=== PATIENT | female | born 1995 | race Caucasian/White ===

== ENCOUNTER → 2018-06-30 11:36 | Outpatient (CLI) | payer OTHER, MEDICAID, SELFPAY ==
[2018-06-30 12:13] LABS: Add Manual Diff / Slide Review NO; Basophils Absolute Auto 100 /uL (0-100); Basophils Percent Auto 0.6 % (0-2); Eosinophils Absolute Auto 100 /uL (0-450); Hematocrit 37.1 % (36-46); Hemoglobin 12.7 g/dL (12.0-16.0); Lymphocytes Absolute Auto 3100 /uL (1100-4500); Lymphocytes Percent Auto 34.2 % (25-40); Mean Corpuscular HGB Conc 34.1 % (30-36); Mean Corpuscular Hemoglobin 29.3 PG (26-34); Monocytes Absolute Auto 500 /uL (0-900); Monocytes Percent Auto 5.6 % (3-14); Neutrophils Absolute Auto 5300 /uL (1500-7000); Neutrophils Percent Auto 58.6 % (50-75); Platelet Count 315 X10^3/uL (150-400); Red Blood Cell Count 4.32 X10^6/uL (4.0-5.2); Red Cell Distribution Width 13.6 % (11.6-14.8); White Blood Cell Count 9.1 X10^3/uL (4.5-11.0)
[2018-06-30 12:44] LABS: Alanine Aminotransferase 32 IU/L (9-52); Albumin 4.7 g/dL (3.5-5.0); Albumin Globulin Ratio 1.7 (1.0-2.8); Alkaline Phosphatase 52 U/L (38-126); Aspartate Aminotransferase 21 IU/L (14-36); BUN Creatinine Ratio 12.9 (6-22); Bilirubin Total 0.6 mg/dL (0.2-1.3); Blood Urea Nitrogen 9 mg/dL (7-17); Calcium 9.9 mg/dL (8.4-10.2); Carbon Dioxide 24 mmol/L (22-32); Chloride 105 mmol/L (98-107); Cholesterol 143 mg/dL (140-199); Estimated Glomerular Filt Rate > 60.0 mL/min (>60); Globulin 2.8 g/dL (1.7-4.1); Glucose 86 mg/dL (70-100); HDL Cholesterol 44 mg/dL (40-60); HEMOLYSIS < 15 (0-50); LDL Cholesterol Calculated 85 mg/dL (<100); Potassium 4.5 mmol/L (3.4-5.1); Sodium 140 mmol/L (137-145); Total Protein 7.5 g/dL (6.3-8.2); Triglycerides 72 mg/dL (35-150)
[2018-06-30 13:11] LABS: Cortisol AM (Before 10AM) 8.11 ug/dL (4.46-22.7); TSH w/ Reflex to FT4 1.54 uIU/mL (0.47-4.68)
== END ==
PROVIDERS: PCP Family Medicine; Visit Provider Family Medicine
DX: D68.51 Activated protein C resistance (principal); Z83.49 Family history of other endocrine, nutritional and metabolic diseases
CPT/HCPCS: 36415; 80053; 80061; 82533; 84443; 85025

== ENCOUNTER → 2020-03-10 10:25 | Outpatient (CLI) | payer OTHER, SELFPAY ==
[2020-03-10 11:28] LABS: Add Manual Diff / Slide Review NO; Basophils Absolute Auto 100 /uL (0-100); Basophils Percent Auto 0.6 % (0-2); Eosinophils Absolute Auto 200 /uL (0-450); Eosinophils Percent Auto 2.5 % (2-4); Hematocrit 38.7 % (36-46); Hemoglobin 12.7 g/dL (12.0-16.0); Lymphocytes Absolute Auto 3100 /uL (1100-4500); Lymphocytes Percent Auto 34.3 % (25-40); Mean Corpuscular HGB Conc 32.9 % (30-36); Mean Corpuscular Volume 88.2 fL (80-100); Monocytes Absolute Auto 500 /uL (0-900); Neutrophils Absolute Auto 5100 /uL (1500-7000); Neutrophils Percent Auto 56.6 % (50-75); Platelet Count 351 X10^3/uL (150-400); Red Blood Cell Count 4.39 X10^6/uL (4.0-5.2); Red Cell Distribution Width 12.7 % (11.6-14.8); White Blood Cell Count 9.1 X10^3/uL (4.5-11.0)
[2020-03-10 11:43] LABS: Alanine Aminotransferase 19 IU/L (<35); Albumin 4.5 g/dL (3.5-5.0); Albumin Globulin Ratio 1.5 (1.0-2.8); Alkaline Phosphatase 54 U/L (38-126); Aspartate Aminotransferase 23 IU/L (14-36); BUN Creatinine Ratio 14.5 (6-22); Bilirubin Total 0.3 mg/dL (0.2-1.3); Blood Urea Nitrogen 9 mg/dL (7-17); Calcium 9.1 mg/dL (8.4-10.2); Carbon Dioxide 25 mmol/L (22-32); Chloride 108 mmol/L (98-107); Estimated Glomerular Filt Rate > 60.0 mL/min (>60); Globulin 3.1 g/dL (1.7-4.1); Glucose 95 mg/dL (70-100); HEMOLYSIS < 15 (0-50); Sodium 139 mmol/L (137-145); Total Protein 7.6 g/dL (6.3-8.2)
[2020-03-10 12:27] LABS: TSH w/ Reflex to FT4 1.75 uIU/mL (0.47-4.68)
== END ==
PROVIDERS: PCP Family Medicine; Referring Provider Family Medicine; Visit Provider Family Medicine
DX: D68.51 Activated protein C resistance (principal); E66.9 Obesity, unspecified; F31.9 Bipolar disorder, unspecified
CPT/HCPCS: 36415; 80053; 84443; 85025

== ENCOUNTER 2020-05-21 07:34 | Emergency (ER) | payer OTHER, SELFPAY ==
[2020-05-21 07:40] VITALS: BP 181/89; PULSE 81; RESP 16; TEMP 36.3; O2SAT 97; BMI 39.4
--- NOTE | 2020-05-21 07:44 | ED.ALLEREA ---
HPI - Allergic Reaction General Chief complaint: Allergic Reaction Stated complaint: both eyes swollen x30 minutes Time Seen by Provider: 05/21/20 07:44 Source: patient Mode of arrival: Ambulatory Limitations: no limitations History of Present Illness HPI narrative: This is a 24-year-old female who comes emergency department with complaint of swelling initially for left followed by her right eye. She states it just began this morning. She states when she woke up she did not have any swelling. She has also noticed some redness around her neck. The patient has not any fevers, no chills. She has not had any congestion or runny nose. Patient has not had any drainage from her eyes. She denies any pruritus. Patient denies any wheezing, no swelling of her lips, mouth or airway. She has not had any chest pain or shortness of breath. She has not had any vomiting she felt nauseous for short period this morning. No diarrhea. No urinary symptoms. She has not appreciated rash anywhere else on her body. She does take citalopram and lamotrigine which she has been taking for many months with no recent changes as well as a vitamin. She has not had any new exposures in terms of soaps, lotions, care products or facial products. Patient has not had similar symptoms in the past she states she has an allergy to amoxicillin but denies any other seasonal or environmental allergies. Patient states that she takes her medications for mood. She denies other medical issues. Related Data Home Medications Medication Instructions Recorded Confirmed prenat.vits,jayjay,[id number] 1 tab PO DAILY 05/06/20 05/06/20 Previous Rx's Medication Instructions Recorded citalopram 20 mg tablet 60 mg PO DAILY #270 tab 05/05/20 lamotrigine 200 mg tablet,extended 200 mg PO DAILY #90 tab 05/05/20 release 24 hr prednisone 40 mg PO DAILY 4 Days #8 tab 05/21/20 Allergies Allergy/AdvReac Type Severity Reaction Status Date / Time amoxicillin Allergy Intermediate HIVES Verified 05/05/20 14:09 fluoxetine AdvReac Severe self harm Verified 05/05/20 14:09 bupropion AdvReac Intermediate vivid Verified 05/05/20 14:09 dreams difficult to tell if they were real or not Review of Systems Review of Systems ROS Unobtainable: All systems reviewed & are unremarkable except as noted in HPI and below Patient History Medical History Carpal tunnel syndrome of right wrist Chicken pox (~2001) Depression (2009) GERD (gastroesophageal reflux disease) (2011) Irregular periods/menstrual cycles (2009) Obesity Peptic ulcer disease (2011) Pneumonia Sleep disturbance Tobacco use (11/24/15) Surgical History Anesthesia History of removal of skin mole (2006) Family History (System 01/15/19 @ 16:16 by Vandana Carroll) Grandfather Age: 80 Hypertension Mother Age: 53 Diabetes mellitus Hypertension High cholesterol Mental health problem Social History Smoking Status: Former smoker alcohol intake: current substance use type: marijuana Smoking Status: Former smoker Exam Narrative Exam Narrative: GEN: well nourished, well appearing female, alert and oriented x alert, patient appears to be in mild distress. HEENT: Atraumatic, pupils are equal round reactive to light, extraocular movements are intact, positive for periorbital swelling left greater than right with no erythema appreciated, no drainage from the eyes, nares are clear, TMs are clear with no fluid, there is no conjunctival pallor. Throat is clear without any exudates, erythema, tonsillar enlargement or uvular deviation, no swelling of the lips, oropharynx, tongue. No stridor. Patient does have patchy erythematous rash her chest but no raised wheals. HEART: Regular rate and rhythm without murmur, clicks, rubs. LUNGS:Lungs clear to auscultation, no wheezes, rales, crackles, chest moves symmetrically ABD:bowel sounds normal, soft, non-tender, no guarding, rebound, rigidity, no masses noted, no hepatosplenomegaly MSCL: Full range of motion, normal gait NEURO:CN 2-12 intact, sensation normal SKIN: Patient has rash as described above but no additional rash noted on the rest of her body. Initial Vital Signs Initial Vital Signs: Vital Signs Temperature 97.4 F L 05/21/20 07:40 Pulse Rate 81 05/21/20 07:40 Respiratory Rate 16 05/21/20 07:40 Blood Pressure 181/89 H 05/21/20 07:40 Pulse Oximetry 97 05/21/20 07:40 Course Orders Ordered: Discontinued Medications Diphenhydramine HCl (Diphenhydramine 25 Mg Tablet) 50 mg PO NOW ONE Stop: 05/21/20 07:50 Last Admin: 05/21/20 07:57 Dose: 50 mg Documented by: GRETA Prednisone (Prednisone 20 Mg Tablet) 60 mg PO NOW ONE Stop: 05/21/20 07:50 Last Admin: 05/21/20 07:57 Dose: 60 mg Documented by: GRETA Reevaluation(s) Reevaluation #1: Patient is haven't any worsening but has not dramatically improved. No signs of anaphylaxis. Discussed return precautions. Time: 08:54 Vital Signs Vital signs: Vital Signs - 8 hr 05/21/20 07:40 05/21/20 08:03 05/21/20 08:20 Temperature 97.4 F L Pulse Rate 81 75 Respiratory Rate 16 Blood Pressure 181/89 H 138/85 Pulse Oximetry 97 99 MDM - Allergic Reaction MDM Narrative Medical decision making narrative: Suspect patient is having a reaction. She has been on lamotrigine which could potentially be a source but is not a new medication. She has not had any known allergens that are likely cause. She does not appreciate any new products or exposures at home. Discharge Plan Departure Patient Disposition: Home Clinical Impression: Periorbital edema of both eyes, Allergic reaction Instructions: DI for General Allergic Reactions Activity Restrictions/Additional Instructions: Follow up with primary care in the next several days for recheck. Please call for an appointment. Take steroids until gone. Prescription sent to [facility] in [place]. Continue benadryl 1-2 tablets every 6-8 hours as needed for symptoms for 24 hours. Lamotrigine has been known to cause rashes and skin changes, if you continue to have symptoms stop your medication and discuss with your physician. Please return if you are having fevers, worsening swelling of your face, lips, mouth, tongue or airway, rash is continuing to spread, stridor high-pitched wheezing, shortness of breath, persistent cough, persistent vomiting, lightheadedness or passing or other new or concerning symptoms. Prescriptions: New prednisone 20 mg tablet 40 mg PO DAILY 4 Days Qty: 8 RF: 0 No Action citalopram 20 mg tablet 60 mg PO DAILY Qty: 270 RF: 0 lamotrigine 200 mg tablet extended release 24hr 200 mg PO DAILY Qty: 90 RF: 0 prenat.vits,jayjay,[id number] Tablet 1 tab PO DAILY RF: 0 Referrals: Karis Colvin DO [Primary Care Provider] -
[2020-05-21] MEDS: predniSONE 20 MG TABLET 60 MG PO (07:57)
[2020-05-21] MEDS: diphenhydrAMINE 25 MG TABLET 50 MG PO (07:57)
[2020-05-21 08:03] VITALS: PULSE 75; O2SAT 99
[2020-05-21 08:20] VITALS: BP 138/85
[2020-05-21 08:30] VITALS: BP 137/82; PULSE 62; O2SAT 99
== END 2020-05-21 09:06 | disposition home or self-care (01) ==
PROVIDERS: Emergency Provider Emergency Medicine; PCP Family Medicine
DX: H05.223 Edema of bilateral orbit (principal); R21 Rash and other nonspecific skin eruption; T78.40XA Allergy, unspecified, initial encounter
CPT/HCPCS: 99283

== ENCOUNTER → 2020-09-16 13:01 | Outpatient (CLI) | payer OTHER, SELFPAY ==
[2020-09-16 15:08] LABS: HCG Quantitative /Beta subunit 27792 mIU/mL
== END ==
PROVIDERS: PCP Family Medicine; Referring Provider Registered Nurse; Visit Provider Registered Nurse
DX: N91.2 Amenorrhea, unspecified (principal)
CPT/HCPCS: 36415; 84702

== ENCOUNTER 2020-09-20 10:51 | Emergency (ER) | payer OTHER, SELFPAY ==
[2020-09-20 10:57] VITALS: BP 139/84; PULSE 98; RESP 14; TEMP 36.4; O2SAT 99; BMI 37.9
[2020-09-20] MEDS: SODIUM CHLORIDE 0.9% 1,000 ML 1000 ML IV (11:19)
[2020-09-20] MEDS: ONDANSETRON 4 MG/2 ML INJ IV (11:19)
[2020-09-20 11:24] LABS: Bacteria Urine Many (>30); Culture Indicated Urine Cult Not Indicated; RBC Urine 0-1/HPF (0-5/HPF); Squamous Epithelial Cell Urine 5-10 /HPF (0-5/HPF); WBC Urine 0-1/HPF (0-5/HPF)
[2020-09-20 11:28] LABS: Add Manual Diff / Slide Review NO; Basophils Absolute Auto 0 /uL (0-100); Basophils Percent Auto 0.3 % (0-2); Eosinophils Absolute Auto 0 /uL (0-450); Eosinophils Percent Auto 0.4 % (2-4); Hematocrit 40.3 % (36-46); Hemoglobin 13.6 g/dL (12.0-16.0); Lymphocytes Absolute Auto 1800 /uL (1100-4500); Mean Corpuscular HGB Conc 33.7 % (30-36); Mean Corpuscular Hemoglobin 29.7 PG (26-34); Mean Corpuscular Volume 87.9 fL (80-100); Monocytes Absolute Auto 500 /uL (0-900); Neutrophils Absolute Auto 8000 /uL (1500-7000); Neutrophils Percent Auto 77.3 % (50-75); Platelet Count 369 X10^3/uL (150-400); Red Blood Cell Count 4.58 X10^6/uL (4.0-5.2); Red Cell Distribution Width 13.6 % (11.6-14.8); White Blood Cell Count 10.4 X10^3/uL (4.5-11.0)
--- NOTE | 2020-09-20 11:31 | ED_ITS ---
HPI - Nausea/Vomiting/Diarrhea General Chief complaint: Nausea/Vomiting/Diarrhea Stated complaint: vomitting Time Seen by Provider: 09/20/20 10:53 Source: patient Mode of arrival: Ambulatory Limitations: no limitations History of Present Illness HPI Narrative: Patient is a 24-year-old female nonsmoker, she is a at about 7 weeks and presents with 2 days of nausea and vomiting. She denies any pain is had no fever chills. She denies any dizziness, lightheadedness, vaginal bleeding or leakage of fluid. She has had no dysuria, frequency or urgency. She is feeling a bit fatigued but is otherwise well Related Data Home Medications Medication Instructions Recorded Confirmed prenat.vits,jayjay,[id number] 1 tab PO DAILY 05/06/20 07/28/20 Previous Rx's Medication Instructions Recorded lamotrigine 200 mg tablet,extended 200 mg PO DAILY #90 tab 05/05/20 release 24 hr citalopram 20 mg tablet 60 mg PO DAILY #270 tab 09/01/20 ondansetron 4 mg disintegrating 4 mg PO Q8H PRN #20 tab 09/19/20 tablet ondansetron 4 mg disintegrating 4 mg PO TID-QID PRN #10 tab 09/20/20 tablet Allergies Allergy/AdvReac Type Severity Reaction Status Date / Time amoxicillin Allergy Intermediate HIVES Verified 09/20/20 11:03 fluoxetine AdvReac Severe self harm Verified 09/20/20 11:03 bupropion AdvReac Intermediate vivid Verified 09/20/20 11:03 dreams difficult to tell if they were real or not Review of Systems Review of Systems Narrative: GENERAL: Denies chills, fatigue, malaise, fever, sweats. HEENT: Denies sinus pain, ear pain, sore throat, difficulty swallowing, dizziness. RESPIRATORY: Denies dyspnea, cough, wheezing, hemoptysis, sputum. CARDIOVASCULAR: Denies chest pain, palpitations, orthopnea, edema, GASTROINTESTINAL: See HPI : Denies dysuria, frequency, incontinence, hematuria, urinary retention. MUSCULOSKELETAL: denies weakness, joint pain, or bony pain SKIN: Denies rash, skin lesions, or other NEUROLOGIC: Denies weakness, headache, numbness, change in speech, confusion, seizures, incoordination. PSYCHIATRIC: No concerning psychosocial issues. 12 point review of systems is negative except for those stated above Patient History Medical History Atypical rash Carpal tunnel syndrome of right wrist Chicken pox (~2001) Depression (2009) GERD (gastroesophageal reflux disease) (2011) Irregular periods/menstrual cycles (2009) Left eye pain Obesity Open angle with borderline findings Peptic ulcer disease (2011) Pneumonia Sleep disturbance Tobacco use (11/24/15) Surgical History Anesthesia History of removal of skin mole (2006) Family History Grandfather Age: 81 Hypertension Mother Age: 54 Diabetes mellitus Hypertension High cholesterol Mental health problem Social History Smoking Status: Former smoker alcohol intake: current substance use type: marijuana Smoking Status: Former smoker alcohol intake frequency: holidays/special occasions only Substance Use Type: does not use Exam Narrative Exam Narrative: GENERAL: [24] year old patient appears stated age. Well- developed patient, in mild distress. HEAD: Atraumatic. Normocephalic. EYES: Pupils equal round and reactive. Extraocular motions intact. No scleral icterus. No injection or drainage. ENT: Nose without bleeding, purulent drainage. Throat without erythema, tonsillar hypertrophy or exudate. Airway patent. NECK: Trachea midline. Non tender CARDIOVASCULAR: Regular rate and rhythm without murmurs, gallops, or rubs. RESPIRATORY: Clear to auscultation. Breath sounds equal bilaterally. No wheezes, rales, or rhonchi. GASTROINTESTINAL: Abdomen soft, non-tender, nondistended. EXTREMITIES: No edema or joint tenderness. BACK: Nontender without deformity or crepitance. No flank tenderness. NEURO: AOx3. SKIN: No rash or erythema of visible areas Initial Vital Signs Initial Vital Signs: Vital Signs Temperature 97.6 F 09/20/20 10:57 Pulse Rate 98 H 09/20/20 10:57 Respiratory Rate 14 09/20/20 10:57 Blood Pressure 139/84 09/20/20 10:57 Pulse Oximetry 99 09/20/20 10:57 Course Orders Ordered: Discontinued Medications Sodium Chloride (Normal Saline 0.9%) 1,000 mls @ 1,000 mls/hr IV BOLUS ONE Stop: 09/20/20 12:13 Last Infusion: 09/20/20 12:28 Dose: 0 mls/hr Documented by: Admin: 09/20/20 11:19 Dose: 1,000 mls/hr Documented by: TONE Ondansetron HCl (Ondansetron 4 Mg/2 Ml Inj) 4 mg IV NOW ONE Stop: 09/20/20 11:15 Last Admin: 09/20/20 11:19 Dose: 4 mg Documented by: TONE Vital Signs Vital signs: Vital Signs - 8 hr 09/20/20 10:57 Temperature 97.6 F Pulse Rate 98 H Respiratory Rate 14 Blood Pressure 139/84 Pulse Oximetry 99 MDM - Nausea/Vomiting/Diarrhea Lab Data Result diagrams: 09/20/20 11:19 09/20/20 11:19 Labs: Lab Results 09/20/20 09/20/20 09/20/20 Range/Units 10:57 11:19 11:19 WBC 10.4 (4.5-11.0) X10^3/uL RBC 4.58 (4.0-5.2) X10^6/uL Hgb 13.6 (12.0-16.0) g/dL Hct 40.3 (36-46) % MCV 87.9 (80-100) fL MCH 29.7 (26-34) PG MCHC 33.7 (30-36) % RDW 13.6 (11.6-14.8) % Plt Count 369 (150-400) X10^3/uL Neut % (Auto) 77.3 H (50-75) % Lymph % (Auto) 17.0 L (25-40) % [place] % (Auto) 5.0 (3-14) % Eos % (Auto) 0.4 L (2-4) % Baso % (Auto) 0.3 (0-2) % Neut # (Auto) 8000 H (9453-0232) /uL Lymph # (Auto) 1800 (3109-9034) /uL [place] # (Auto) 500 (0-900) /uL Eos # (Auto) 0 (0-450) /uL Baso # (Auto) 0 (0-100) /uL Sodium 138 (137-145) mmol/L Potassium 4.0 (3.4-5.1) mmol/L Chloride 105 (98-107) mmol/L Carbon Dioxide 22 (22-32) mmol/L BUN 7 (7-17) mg/dL Creatinine 0.51 L (0.52-1.04) mg/dL Estimated GFR > 60.0 (>60) mL/min BUN/Creatinine Ratio 13.7 (6-22) Glucose 109 H (70-100) mg/dL Calcium 10.2 (8.4-10.2) mg/dL Total Bilirubin 0.6 (0.2-1.3) mg/dL AST 25 (14-36) IU/L ALT 21 (<35) IU/L Alkaline Phosphatase 56 (38-126) U/L Total Protein 8.1 (6.3-8.2) g/dL Albumin 4.7 (3.5-5.0) g/dL Globulin 3.4 (1.7-4.1) g/dL Albumin/Globulin Ratio 1.4 (1.0-2.8) Urine RBC 0-1/hpf (0-5/HPF) Urine WBC 0-1/hpf (0-5/HPF) Ur Squamous Epith Cells 5-10 /hpf H (0-5/HPF) Urine Bacteria Many (>30) H (None) Ur Culture Indicated? Cult not indicated Ketones 0.31 H (<0.27) mmol/L Point of Care Testing Glucose POC 93 Urine Dip Bedside Urine Glucose Negative Bedside Urine Bilirubin - Negative Bedside Urine Ketone +/- 5 Urine Specific [place] 1.025 Bedside Urine Occult Blood - Negative Bedside Urine pH 6.0 Bedside Urine Protein +/- 15 Bedside Urine Urobilinogen - Negative Bedside Urine Nitrite - Negative Bedside Urine Leukocytes - Negative Esterase Discharge Plan Departure Patient Disposition: Home Clinical Impression: Vomiting affecting Instructions: Nausea and Vomiting-Adult Activity Restrictions/Additional Instructions: *You have been diagnosed with [nausea and vomiting in . Your physical exam and labs are very reassuring.] *What to do: *Please continue to take your regular medications as directed. [x ] New medication prescriptions sent to your pharmacy: [facility]] [ ] New medication written as a paper prescription [ ] No new medications given *Please follow up with your primary care provider in 2-3 days, call for an appointment. Let them know you were seen in the Emergency Department and that we ask that you be seen in follow up. We will electronically transmit a record of today's note if your PCP is in our system *If you do not have a primary care provider please contact the [facility] Resource line at [phone]. They will ask some questions about your medical history and help get you set up with a doctor in the community. *Return to Emergency Department if you should have any new, worsening or concerning symptoms, such as [fever greater than 101 F, shaking chills, worsening pain, persistent vomiting or other bothersome symptoms] Prescriptions: New ondansetron 4 mg tablet,disintegrating 4 mg PO TID-QID PRN (Reason: nausea and vomiting) Qty: 10 RF: 0 No Action citalopram 20 mg tablet 60 mg PO DAILY Qty: 270 RF: 0 ondansetron 4 mg tablet,disintegrating 4 mg PO Q8H PRN (Reason: nausea and vomiting) Qty: 20 RF: 2 lamotrigine 200 mg tablet extended release 24hr 200 mg PO DAILY Qty: 90 RF: 0 prenat.vits,jayjay,[id number] Tablet 1 tab PO DAILY RF: 0 Referrals: Karis Colvin DO [Primary Care Provider] -
[2020-09-20 11:40] LABS: Alanine Aminotransferase 21 IU/L (<35); Albumin 4.7 g/dL (3.5-5.0); Albumin Globulin Ratio 1.4 (1.0-2.8); Alkaline Phosphatase 56 U/L (38-126); Aspartate Aminotransferase 25 IU/L (14-36); BUN Creatinine Ratio 13.7 (6-22); Bilirubin Total 0.6 mg/dL (0.2-1.3); Blood Urea Nitrogen 7 mg/dL (7-17); Calcium 10.2 mg/dL (8.4-10.2); Carbon Dioxide 22 mmol/L (22-32); Chloride 105 mmol/L (98-107); Estimated Glomerular Filt Rate > 60.0 mL/min (>60); Globulin 3.4 g/dL (1.7-4.1); Glucose 109 mg/dL (70-100); Sodium 138 mmol/L (137-145); Total Protein 8.1 g/dL (6.3-8.2)
[2020-09-20 12:06] LABS: HEMOLYSIS < 15 (0-50); Ketones (Beta-Hydroxybutyrate) 0.31 mmol/L (<0.27)
[2020-09-20 12:16] VITALS: BP 133/81; PULSE 67; RESP 17; O2SAT 100
== END 2020-09-20 12:29 | disposition home or self-care (01) ==
PROVIDERS: Emergency Provider Emergency Medicine; PCP Family Medicine
DX: O21.9 Vomiting of pregnancy, unspecified (principal); Z3A.01 Less than 8 weeks gestation of pregnancy
CPT/HCPCS: 36415; 80053; 81003; 81015; 82009; 82962; 85025; 96361; 96374; 99284; J2405

== ENCOUNTER 2020-10-03 14:48 | Emergency (ER) | payer OTHER, SELFPAY ==
[2020-10-03 15:01] VITALS: BP 128/96; PULSE 84; RESP 17; TEMP 37.2; O2SAT 99; BMI 37.2
[2020-10-03 18:24] LABS: COVID19 -Nasal RAPID Negative (Negative)
--- NOTE | 2020-10-03 18:35 | ED_ITS ---
HPI - Nausea/Vomiting/Diarrhea General Chief complaint: Nausea/Vomiting/Diarrhea Stated complaint: 9 Wks Preg, Severe Nausea, Needs COVID Test Time Seen by Provider: 10/03/20 18:00 Source: patient Mode of arrival: Ambulatory Limitations: no limitations History of Present Illness HPI Narrative: Patient is a 24-year-old female with history of bipolar, hyperemesis gravidarum presenting today with nausea and vomiting. She is also currently COVID vaccinated but there was concern for possible COVID she was sent to the ED for testing. She has regular infusions for her hyperemesis. She has been nauseous with vomiting all morning. Starting to feel a little bit better. She has Unisom B6 Phenergan and Zofran at home. She denies any vaginal bleeding no significant abdominal pain. She has not had any fever or chills. She denies any cough chest pain or shortness of breath. No changes in taste or smell. Related Data Home Medications Medication Instructions Recorded Confirmed prenat.vits,jayjay,qje-[id number]-akpsc 1 tab PO DAILY 05/06/20 07/28/20 Previous Rx's Medication Instructions Recorded lamotrigine 200 mg tablet,extended 200 mg PO DAILY #90 tab 05/05/20 release 24 hr citalopram 20 mg tablet 60 mg PO DAILY #270 tab 09/01/20 ondansetron 4 mg disintegrating 4 mg PO Q8H PRN #20 tab 09/19/20 tablet ondansetron 4 mg disintegrating 4 mg PO TID-QID PRN #10 tab 09/20/20 tablet promethazine 25 mg rectal 25 mg NV Q4-6H PRN #12 ea 09/24/20 suppository nitrofurantoin 100 mg PO BID #10 cap 10/03/20 monohydrate/macrocrystals 100 mg capsule (Macrobid) Allergies Allergy/AdvReac Type Severity Reaction Status Date / Time amoxicillin Allergy Intermediate HIVES Verified 10/03/20 15:01 fluoxetine AdvReac Severe self harm Verified 10/03/20 15:01 bupropion AdvReac Intermediate vivid Verified 10/03/20 15:01 dreams difficult to tell if they were real or not Review of Systems Review of Systems Narrative: GENERAL: Denies chills, fatigue, malaise, fever, sweats, travel HEENT: Denies sinus pain, ear pain, sore throat, difficulty swallowing, neck pain RESPIRATORY: Denies dyspnea, cough, wheezing, hemoptysis, sputum. CARDIOVASCULAR: Denies chest pain, palpitations, orthopnea, edema GASTROINTESTINAL: See HPI : Denies dysuria, frequency, incontinence, hematuria, urinary retention, flank pain. MUSCULOSKELETAL: Denies weakness, joint pain, or bony pain SKIN: No rash, no erythema, no pruritus NEUROLOGIC: Denies weakness, dizziness, headache, numbness, change in speech, confusion PSYCHIATRIC: No concerning psychosocial issues. 12 point review of systems is negative except for those stated above and HPI Patient History Medical History Atypical rash Carpal tunnel syndrome of right wrist Chicken pox (~2001) Depression (2009) GERD (gastroesophageal reflux disease) (2011) Irregular periods/menstrual cycles (2009) Left eye pain Obesity Open angle with borderline findings Peptic ulcer disease (2011) Pneumonia Sleep disturbance Tobacco use (11/24/15) Surgical History Anesthesia History of removal of skin mole (2006) Family History Grandfather Age: 81 Hypertension Mother Age: 54 Diabetes mellitus Hypertension High cholesterol Mental health problem Social History Smoking Status: Former smoker alcohol intake: current substance use type: marijuana Smoking Status: Former smoker alcohol intake frequency: holidays/special occasions only Substance Use Type: does not use Exam Initial Vital Signs Initial Vital Signs: Vital Signs Temperature 98.9 F 10/03/20 15:01 Pulse Rate 84 10/03/20 15:01 Respiratory Rate 17 10/03/20 15:01 Blood Pressure 128/96 H 10/03/20 15:01 Pulse Oximetry 99 10/03/20 15:01 GENERAL: Well-appearing 24-year-old female and in no acute distress. HEENT: Head atraumatic,EOMI, pupils reactive, face symmetric, neck is supple no meningeal signs CARDIOVASCULAR: Regular rate and rhythm without murmurs, rubs or gallops. RESPIRATORY: Breath sounds equal bilaterally, no wheezes rales or rhonchi. ABDOMEN: Soft, nontender. Normoactive bowel sounds all 4 quadrants. No guarding or rebound. : No CVA tenderness EXTREMITIES: Normal range of motion, no clubbing or edema. Neurovascularly intact NEUROLOGICAL: Alert and oriented x4.Normal gait and speech. Cranial nerves II through XII grossly intact. SKIN: Petechial like rash noted on bilateral sides of her neck no other rashes present Course Orders Ordered: ED Orders 10/03/20 17:52 COVID19 -Nasal swab/Pre-Proc Stat 10/03/20 19:45 Complete Blood Count AUTO DIFF Stat Comprehensive Metabolic Panel Stat Urine Culture Stat Urine Microscopic Stat Discontinued Medications Sodium Chloride (Normal Saline 0.9%) 1,000 mls @ 1,000 mls/hr IV BOLUS ONE Stop: 10/03/20 19:39 Last Infusion: 10/03/20 20:44 Dose: 0 mls/hr Documented by: Admin: 10/03/20 19:47 Dose: 1,000 mls/hr Documented by: PRUDENCE Nitrofurantoin Macrocrystals (Nitrofurantoin 100mg Prepack) 1 bottle MISC SEEINSTR ONE Stop: 10/03/20 20:45 Last Admin: 10/03/20 20:51 Dose: Not Given Documented by: PRUDENCE Nitrofurantoin Macrocrystals (Nitrofurantoin Er 100 Mg Capsule) 100 mg PO NOW ONE Stop: 10/03/20 20:49 Last Admin: 10/03/20 20:51 Dose: 100 mg Documented by: PRUDENCE Ondansetron HCl (Ondansetron 4 Mg/2 Ml Inj) 4 mg IV NOW ONE Stop: 10/03/20 18:41 Last Admin: 10/03/20 19:48 Dose: 4 mg Documented by: PRUDENCE Vital Signs Vital signs: Vital Signs - 8 hr 10/03/20 20:56 Pulse Rate 68 Respiratory Rate 16 Blood Pressure 104/57 L Pulse Oximetry 100 MDM - Nausea/Vomiting/Diarrhea Lab Data Result diagrams: 10/03/20 19:45 10/03/20 19:45 Labs: Lab Results 10/03/20 10/03/20 10/03/20 Range/Units 17:52 19:45 19:45 WBC 18.0 H (4.5-11.0) X10^3/uL RBC 4.52 (4.0-5.2) X10^6/uL Hgb 13.4 (12.0-16.0) g/dL Hct 40.1 (36-46) % MCV 88.6 (80-100) fL MCH 29.7 (26-34) PG MCHC 33.5 (30-36) % RDW 13.5 (11.6-14.8) % Plt Count 375 (150-400) X10^3/uL Neut % (Auto) 82.9 H (50-75) % Lymph % (Auto) 13.2 L (25-40) % Gaines % (Auto) 3.5 (3-14) % Eos % (Auto) 0.0 L (2-4) % Baso % (Auto) 0.4 (0-2) % Neut # (Auto) 23999 H (4588-0692) /uL Lymph # (Auto) 2400 (3501-7681) /uL Gaines # (Auto) 600 (0-900) /uL Eos # (Auto) 0 (0-450) /uL Baso # (Auto) 100 (0-100) /uL Sodium 140 (137-145) mmol/L Potassium 4.0 (3.4-5.1) mmol/L Chloride 105 (98-107) mmol/L Carbon Dioxide 23 (22-32) mmol/L BUN 5 L (7-17) mg/dL Creatinine 0.42 L (0.52-1.04) mg/dL Estimated GFR > 60.0 (>60) mL/min BUN/Creatinine Ratio 11.9 (6-22) Glucose 108 H (70-100) mg/dL Calcium 10.5 H (8.4-10.2) mg/dL Total Bilirubin 0.5 (0.2-1.3) mg/dL AST 31 (14-36) IU/L ALT 21 (<35) IU/L Alkaline Phosphatase 47 (38-126) U/L Total Protein 8.6 H (6.3-8.2) g/dL Albumin 5.1 H (3.5-5.0) g/dL Globulin 3.5 (1.7-4.1) g/dL Albumin/Globulin Ratio 1.5 (1.0-2.8) Urine RBC (0-5/HPF) Urine WBC (0-5/HPF) Amorphous Sediment Urine Bacteria (None) Ur Culture Indicated? SARS-CoV-2 (PCR) Negative (Negative) 10/03/20 Range/Units 19:45 WBC (4.5-11.0) X10^3/uL RBC (4.0-5.2) X10^6/uL Hgb (12.0-16.0) g/dL Hct (36-46) % MCV (80-100) fL MCH (26-34) PG MCHC (30-36) % RDW (11.6-14.8) % Plt Count (150-400) X10^3/uL Neut % (Auto) (50-75) % Lymph % (Auto) (25-40) % Gaines % (Auto) (3-14) % Eos % (Auto) (2-4) % Baso % (Auto) (0-2) % Neut # (Auto) (2153-1054) /uL Lymph # (Auto) (2143-4414) /uL Gaines # (Auto) (0-900) /uL Eos # (Auto) (0-450) /uL Baso # (Auto) (0-100) /uL Sodium (137-145) mmol/L Potassium (3.4-5.1) mmol/L Chloride (98-107) mmol/L Carbon Dioxide (22-32) mmol/L BUN (7-17) mg/dL Creatinine (0.52-1.04) mg/dL Estimated GFR (>60) mL/min BUN/Creatinine Ratio (6-22) Glucose (70-100) mg/dL Calcium (8.4-10.2) mg/dL Total Bilirubin (0.2-1.3) mg/dL AST (14-36) IU/L ALT (<35) IU/L Alkaline Phosphatase (38-126) U/L Total Protein (6.3-8.2) g/dL Albumin (3.5-5.0) g/dL Globulin (1.7-4.1) g/dL Albumin/Globulin Ratio (1.0-2.8) Urine RBC 5-10/hpf H (0-5/HPF) Urine WBC 5-10/hpf H (0-5/HPF) Amorphous Sediment 3+ Urine Bacteria Many (>30) H (None) Ur Culture Indicated? Specimen cultured SARS-CoV-2 (PCR) (Negative) Urine Dip Bedside Urine Glucose Negative Bedside Urine Bilirubin - Negative Bedside Urine Ketone +++ 80 Urine Specific [place] 1.030 Bedside Urine Occult Blood - Negative Bedside Urine pH 6.0 Bedside Urine Protein + 30 Bedside Urine Urobilinogen - Negative Bedside Urine Nitrite - Negative Bedside Urine Leukocytes - Negative Esterase MDM Narrative Medical decision making narrative: Patient is found have leukocytosis of 18 with bacteria in her urine. Will treat for possible UTI. She overall appears well she is feeling much better after fluids and Zofran. Petechia rash unsure of clinical significance. She has no other signs of meningitis no headache or neck pain or fever. No sign of HELLP syndrome she has normal platelets liver enzymes and normal blood pressure, also very early in for HELLP syndrome so this seems unlikely. She has follow-up with [facility] appointment in 4 days and then follow up with OB next week. With this time patient overall looks significantly improved. Discharge Plan Departure Patient Disposition: Home Clinical Impression: Hyperemesis gravidarum, UTI (urinary tract infection) during Instructions: DI for Urinary Tract Infection (UTI) Activity Restrictions/Additional Instructions: *You have been diagnosed with hyperemesis gravidarum and UTI *What to do: At this time please monitor the rash on your neck hopefully does not get any worse. He do have some bacteria in your urine will start you on antibiotics for possible UTI. Increase fluids as tolerated. Please continue anti nausea medication as previously instructed by your OB. *Continue to take medications as directed Macrobid 100 mg twice a day for 5 days --> SENT TO [facility] *Follow up with your OBGYN next week as scheduled *Return to ER if you should have persistent vomiting, vaginal bleeding, worsening rash or any new, worsening or concerning symptoms Prescriptions: New nitrofurantoin monohyd/m-cryst [Macrobid] 100 mg capsule 100 mg PO BID Qty: 10 RF: 0 No Action citalopram 20 mg tablet 60 mg PO DAILY Qty: 270 RF: 0 ondansetron 4 mg tablet,disintegrating 4 mg PO Q8H PRN (Reason: nausea and vomiting) Qty: 20 RF: 2 promethazine 25 mg suppository 25 mg NV Q4-6H PRN (Reason: nausea and vomiting) Qty: 12 RF: 2 lamotrigine 200 mg tablet extended release 24hr 200 mg PO DAILY Qty: 90 RF: 0 prenat.vits,jayjay,[id number] Tablet 1 tab PO DAILY RF: 0 ondansetron 4 mg tablet,disintegrating 4 mg PO TID-QID PRN (Reason: nausea and vomiting) Qty: 10 RF: 0 Referrals: Karis Colvin DO [Primary Care Provider] -
[2020-10-03] MEDS: SODIUM CHLORIDE 0.9% 1,000 ML 1000 ML IV (19:47)
[2020-10-03] MEDS: ONDANSETRON 4 MG/2 ML INJ IV (19:48)
[2020-10-03 19:51] LABS: Add Manual Diff / Slide Review NO; Basophils Absolute Auto 100 /uL (0-100); Basophils Percent Auto 0.4 % (0-2); Eosinophils Absolute Auto 0 /uL (0-450); Hematocrit 40.1 % (36-46); Hemoglobin 13.4 g/dL (12.0-16.0); Lymphocytes Absolute Auto 2400 /uL (1100-4500); Lymphocytes Percent Auto 13.2 % (25-40); Mean Corpuscular HGB Conc 33.5 % (30-36); Mean Corpuscular Hemoglobin 29.7 PG (26-34); Mean Corpuscular Volume 88.6 fL (80-100); Monocytes Absolute Auto 600 /uL (0-900); Monocytes Percent Auto 3.5 % (3-14); Neutrophils Absolute Auto 14900 /uL (1500-7000); Neutrophils Percent Auto 82.9 % (50-75); Platelet Count 375 X10^3/uL (150-400); Red Blood Cell Count 4.52 X10^6/uL (4.0-5.2); Red Cell Distribution Width 13.5 % (11.6-14.8)
[2020-10-03 20:03] LABS: Alanine Aminotransferase 21 IU/L (<35); Albumin 5.1 g/dL (3.5-5.0); Albumin Globulin Ratio 1.5 (1.0-2.8); Alkaline Phosphatase 47 U/L (38-126); Aspartate Aminotransferase 31 IU/L (14-36); BUN Creatinine Ratio 11.9 (6-22); Bilirubin Total 0.5 mg/dL (0.2-1.3); Blood Urea Nitrogen 5 mg/dL (7-17); Calcium 10.5 mg/dL (8.4-10.2); Carbon Dioxide 23 mmol/L (22-32); Chloride 105 mmol/L (98-107); Estimated Glomerular Filt Rate > 60.0 mL/min (>60); Globulin 3.5 g/dL (1.7-4.1); Glucose 108 mg/dL (70-100); HEMOLYSIS 27 (0-50); Sodium 140 mmol/L (137-145); Total Protein 8.6 g/dL (6.3-8.2)
[2020-10-03 20:24] LABS: RBC Urine 5-10/HPF (0-5/HPF)
[2020-10-03 20:25] LABS: Amorphous Sediment Urine 3+; Bacteria Urine Many (>30); Culture Indicated Urine Specimen Cultured; WBC Urine 5-10/HPF (0-5/HPF)
--- NOTE | 2020-10-03 20:42 | PC.NURSE ---
Pt is 9 weeks . states has had to have infusions at infusion clinic for fluids to help stay hydrated.
[2020-10-03] MEDS: NITROFURANTOIN ER 100 MG CAPSULE PO (20:51)
[2020-10-03 20:56] VITALS: BP 104/57; PULSE 68; RESP 16; O2SAT 100
== END 2020-10-03 20:58 | disposition home or self-care (01) ==
PROVIDERS: Emergency Medicine; Emergency Provider Emergency Medicine; PCP Family Medicine
DX: O21.0 Mild hyperemesis gravidarum (principal); N39.0 Urinary tract infection, site not specified; Z20.822 Contact with and (suspected) exposure to COVID-19
CPT/HCPCS: 36415; 80053; 81003; 81015; 85025; 87086; 87635; 96361; 96374; 99284; C9803; J2405

== ENCOUNTER → 2020-10-09 17:48 | Outpatient (CLI) | payer OTHER, SELFPAY ==
[2020-10-09 18:49] LABS: Add Manual Diff / Slide Review NO; Basophils Absolute Auto 0 /uL (0-100); Basophils Percent Auto 0.3 % (0-2); Eosinophils Absolute Auto 100 /uL (0-450); Eosinophils Percent Auto 0.4 % (2-4); Hematocrit 35.6 % (36-46); Hemoglobin A1C% w Est Avg Glu 4.9 % (4.0-6.0); Lymphocytes Absolute Auto 3100 /uL (1100-4500); Lymphocytes Percent Auto 23.8 % (25-40); Mean Corpuscular HGB Conc 33.7 % (30-36); Mean Corpuscular Hemoglobin 29.5 PG (26-34); Mean Corpuscular Volume 87.6 fL (80-100); Monocytes Absolute Auto 700 /uL (0-900); Monocytes Percent Auto 5.5 % (3-14); Neutrophils Absolute Auto 9200 /uL (1500-7000); Platelet Count 343 X10^3/uL (150-400); Red Blood Cell Count 4.06 X10^6/uL (4.0-5.2); Red Cell Distribution Width 13.5 % (11.6-14.8); White Blood Cell Count 13.2 X10^3/uL (4.5-11.0)
[2020-10-09 19:10] LABS: Hepatitis B Surface Antigen NEGATIVE s/c (NEGATIVE); Rubella Antibody IgG 19.7 IU/mL (>15)
[2020-10-09 19:28] LABS: HIV 1 & 2 Ab/Ag 4th Gen Combo NEGATIVE (NEGATIVE); Hep C Virus Ab w/Reflex Quant NEGATIVE s/c (NEGATIVE)
[2020-10-10 09:43] LABS: RPR Screen Non Reactive (Non Reactive); Varicella IgG Antibody <135 index (Immune >165)
== END ==
PROVIDERS: PCP Family Medicine; Referring Provider Obstetrics & Gynecology; Visit Provider Obstetrics & Gynecology
DX: Z34.01 Encounter for supervision of normal first pregnancy, first trimester (principal)
CPT/HCPCS: 36415; 80055; 83036; 86787; 86803; 86850; 86900; 86901; 87389

== ENCOUNTER → 2020-12-08 09:21 | Outpatient (CLI) | payer OTHER, SELFPAY ==
[2020-12-10 19:43] LABS: AFP, Serum 24.1 ng/mL (.); Estriol, Free 1.17 ng/mL (.); Maternal Ethnicity Caucasian (.); Maternal Weight 220 lbs (.); Number of Fetuses No (.); OSBR Risk 1 IN 10000 (.); Results Report (.); Test Results *Screen Negative* (.); hCG, MoM 1.12 (.); hCG, Serum 24470 mIU/mL (.)
== END ==
PROVIDERS: PCP Family Medicine; Referring Provider Obstetrics & Gynecology; Visit Provider Obstetrics & Gynecology
DX: Z34.02 Encounter for supervision of normal first pregnancy, second trimester (principal); Z3A.18 18 weeks gestation of pregnancy
CPT/HCPCS: 36415; 82105; 82677; 84702; 86336

== ENCOUNTER → 2020-12-19 14:05 | Outpatient (CLI) | payer OTHER, MEDICAID, SELFPAY ==
--- NOTE | 2020-12-19 14:08 | DI.US.S_ITS ---
PROCEDURE: US OB >= 14 WEEKS FETUS INDICATIONS: ANATOMY OUTSIDE/PRIOR DATING DATA: Last menstrual period (LMP): 08/01/2020. LMP-based estimated date of delivery (BRANDEE): 05/08/2021 . First dating scan (date and location): 10/09/2020 . Estimated date of delivery (BRANDEE) from first dating scan: 05/15/2021 . TECHNIQUE: Real-time scanning was performed of the fetus, with image documentation and biometric measurements. Endovaginal scanning: No COMPARISON: [facility], , OB <= 14 WEEKS FETUS, 10/09/2020, 17:31. FINDINGS: General: A single living intrauterine gestation is present. Presentation: Breech. Placenta: Placental position is posterior , without previa. Amniotic fluid index: 12.3 cm, normal range is 5-24 cm. heart rate: 138 beats per minute. Maternal cervical canal: 3.1 cm long. Normal lower limit is 2.5 cm. biometrics: Biparietal diameter: 20 weeks 0 days Head circumference: 19 weeks 4 days Abdominal circumference: 19 weeks Femur length: 19 weeks 1 day Estimated gestational age from initial scan: 19 weeks 0 days Composite gestational age from present scan: 19 weeks 3 days Estimated weight and percentile: 275 g; 53rd percentile Measurement variability for biometric dating: +/- 7 days from 14 weeks to 15 weeks 6 days gestation, +/- 10 days from 16 weeks to 21 weeks 6 days gestation, +/- 2 weeks from 22 weeks to 27 weeks 6 days gestation, +/- 3 weeks for 28 weeks gestation or later. weight reference: 4500 g or EFW >90/95% is considered macrosomia or large for gestational age. EFW <10% is small for gestational age. EFW 5% or less is considered intra-uterine growth restriction. Anatomic survey: Neuro: Ventricles are non-dilated at less than 10 mm. Cisterna magna is normal at 3-11 mm. Cerebellum is normal in size and morphology. Nuchal skin fold: Normal at less than 6 mm between 14-21 weeks gestational age. Face: Suboptimally visualized. Spine: No evidence for spina bifida. Heart: Suboptimally visualized. Diaphragm: Diaphragm is intact. Stomach: Left-sided stomach is present. Kidneys: No hydronephrosis. Normal is less than 5 mm in 2nd trimester, less than 7 mm in 3rd trimester. Cord: 3-vessel cord has orthotopic insertion. Bladder: Normal in size. Extremities: All 4 extremities identified. IMPRESSION: 1. Single living intrauterine demonstrating appropriate interval growth with estimated weight at the 53rd percentile. 2. Four-chamber heart, cardiac outflow tracts and the face are suboptimally visualized. A follow-up study may be performed in 2-4 weeks for further evaluation if clinically indicated. Dictated by: Garland Echeverria [facility] Interpreted: Napoleon Muñoz MD on 12/19/2020 at 15:39 Transcribed by: PALOMO on 12/19/2020 at 15:42 Approved by: Napoleon Muñoz M.D. on 12/20/2020 at 1:06
== END ==
PROVIDERS: PCP Family Medicine; Referring Provider Obstetrics & Gynecology; Visit Provider Obstetrics & Gynecology
DX: Z34.02 Encounter for supervision of normal first pregnancy, second trimester (principal); Z3A.19 19 weeks gestation of pregnancy
CPT/HCPCS: 76811

== ENCOUNTER → 2021-01-05 09:25 | Outpatient (CLI) | payer OTHER, MEDICAID, SELFPAY ==
[2021-01-05 13:45] LABS: Urine N gonorrhoeae NOT DETECTED
[2021-01-05 14:24] LABS: Urine Chlamydia NOT DETECTED
== END ==
PROVIDERS: PCP Family Medicine; Visit Provider Obstetrics & Gynecology
DX: Z34.02 Encounter for supervision of normal first pregnancy, second trimester (principal); Z3A.22 22 weeks gestation of pregnancy
CPT/HCPCS: 87491; 87591

== ENCOUNTER → 2021-01-22 07:48 | Outpatient (CLI) | payer OTHER, MEDICAID, SELFPAY ==
--- NOTE | 2021-01-22 07:49 | DI.US.S_ITS ---
PROCEDURE: US OB FOLLOW UP INDICATIONS: FOLLOW UP HEART AND FACE OUTSIDE/PRIOR DATING DATA: Last menstrual period (LMP): 08/01/2020. LMP-based estimated date of delivery (BRANDEE): 05/08/2021. First dating scan (date and location): 10/09/2020. Estimated date of delivery (BRANDEE) from first dating scan: 05/15/2021. TECHNIQUE: Real-time scanning was performed of the fetus, with image documentation. COMPARISON: [facility], OB >= 14 WEEKS FETUS, 12/19/2020, 14:30. [facility], , US OB <= 14 WEEKS FETUS, 10/09/2020, 17:31. FINDINGS: A single living intrauterine gestation is present. Presentation: Breech, spine up. Placenta: Placental position is posterior, without previa. Amniotic fluid index: 16.1 cm, normal range is 5-24 cm. heart rate: 143 beats per minute. Maternal cervical canal: 4.1 cm long. Normal lower limit is 2.5 cm. Estimated gestational age from initial scan: 23 weeks 6 days. Miscellaneous: Outflow tracks, as well as profile and 4 chambered heart remain suboptimal. This is felt to be secondary to patient maternal body habitus as well as lie. nose, face and lips appear to be within normal limits. IMPRESSION: 1. Single live intrauterine with ultrasound gestational age from initial ultrasound of 23 weeks 6 days. 2. Outflow tracts, 4 chambered heart and facial profile remain suboptimally visualized. Continued interval follow-up is recommended as indicated. 3. nose, face and lips are within normal limits, noting complete profile is not well seen. Dictated by: Ana Paula Nguyen M.D. on 01/22/2021 at 18:46 Approved by: Ana Paula Nguyen M.D. on 01/22/2021 at 18:52
== END ==
PROVIDERS: PCP Family Medicine; Referring Provider Obstetrics & Gynecology; Visit Provider Obstetrics & Gynecology
DX: Z3A.23 23 weeks gestation of pregnancy; Z36.2 Encounter for other antenatal screening follow-up
CPT/HCPCS: 76816

== ENCOUNTER → 2021-02-02 09:24 | Outpatient (CLI) | payer OTHER, MEDICAID, SELFPAY ==
[2021-02-02 12:07] LABS: Hematocrit 33.5 % (36-46); Hemoglobin 11.5 g/dL (12.0-16.0)
[2021-02-02 13:42] LABS: GTT (PREG) 1 Hour PP 50gm Dose 128 mg/dL (76-139)
== END ==
PROVIDERS: PCP Family Medicine; Referring Provider Obstetrics & Gynecology; Visit Provider Obstetrics & Gynecology
DX: Z34.02 Encounter for supervision of normal first pregnancy, second trimester (principal); Z3A.26 26 weeks gestation of pregnancy
CPT/HCPCS: 36415; 82950; 85014; 85018

== ENCOUNTER 2021-03-21 14:57 | Outpatient (CLI) | payer OTHER, MEDICAID, SELFPAY ==
[2021-03-21 15:23] LABS: Appearance Urine UA CLEAR; Bilirubin Urine UA NEGATIVE (NEGATIVE); Color Urine UA YELLOW; Glucose Urine UA NEGATIVE (Negative); Ketones Urine UA NEGATIVE (NEGATIVE); Leukocyte Esterase Urine UA 1+ (NEGATIVE); Nitrite Urine UA NEGATIVE (Negative); Occult Blood Urine UA NEGATIVE (Negative); Protein Urine UA NEGATIVE (Negative); Urobilinogen Urine UA 0.2 E.U./dL (0.2)
[2021-03-21 15:31] LABS: RBC Urine None Seen (0-5/HPF); Squamous Epithelial Cell Urine 5-10 /HPF (0-5/HPF); WBC Urine 5-10/HPF (0-5/HPF)
[2021-03-21 15:32] LABS: Amorphous Sediment Urine 2+; Bacteria Urine None Seen; Culture Indicated Urine Cult Not Indicated
--- NOTE | 2021-03-21 15:38 | P.TNLD_ITS ---
Visit Information Visit Information Date of evaluation: 03/21/21 Primary OB Provider: Gardenia Rodriguez On-call OB Provider: Olivia Meza Reason for Evaluation: Yes non-stress test Comments/Additional reasons for admission: This patient is a P0 @33 weeks presenting for decreased movement and reporting contractions vs. gas pain every 30 minutes. No LOF, no VB, no PIH symptoms. Vital Signs Vital Signs: 130/78 with proper sized cuff, HR 94 PFSH Medical History Carpal tunnel syndrome of right wrist Chicken pox (~2001) Closed fracture of left lower leg with routine healing (~1998) Depression (2009) GERD (gastroesophageal reflux disease) (2011) Irregular periods/menstrual cycles (2009) Obesity Open angle with borderline findings Peptic ulcer disease (2011) Pneumonia (~2015) Sleep disturbance Tobacco use (12/03/13) Surgical History Anesthesia History of removal of skin mole (2006) Family History Grandfather Age: 82 Hypertension Hyperlipidemia COPD (chronic obstructive pulmonary disease) Asthma Former smoker, stopped smoking in distant past Mother Diabetes mellitus History of above-knee amputation of both lower extremities Hypertension High cholesterol Myocardial infarct Depression TIA (transient ischemic attack) Factor V deficiency Factor VIII deficiency Father Alcoholic Depression Grandmother Pancreatic cancer Diabetes mellitus Obesity Grandmother Bipolar 1 disorder Grandfather Alcoholic Smoker Social History marital status: household members: spouse lives independently: Yes caregiver/support person: No housing: house pets and animals: Yes (3 dogs: safe) education level: high school (GED) 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 ) current occupational exposures/hazards: No special karma needs: No seatbelt use: always do you feel safe at home: Yes Smoking Status: Former smoker (Quit in 2015.) second hand exposure: No alcohol intake: former substance use type: marijuana during the past year weight has: decreased > 10 lbs well-balanced diet: about half the time caffeine: No Type(s) of exercise: none Objective Labs Labs: Laboratory Results - last 24 hr 03/21/21 15:00 Urine Color Yellow Urine Appearance Clear Urine pH 7.0 Ur Specific Stephen 1.010 Urine Protein Negative Urine Glucose (UA) Negative Urine Ketones Negative Urine Occult Blood Negative Urine Nitrate Negative Urine Bilirubin Negative Urine Urobilinogen 0.2 Ur Leukocyte Esterase 1+ H Urine RBC None seen Urine WBC 5-10/hpf H Ur Squamous Epith Cells 5-10 /hpf H Amorphous Sediment 2+ Urine Bacteria None seen Ur Culture Indicated? Cult not indicated Evaluation Evaluation Baseline heart rate: 130 Variability: Moderate (11-25) monitor accelerations: Present Monitor Decelerations: Absent Diagnosis, Plan/Disposition Plan/Disposition Plan: No contractions visualized, normal UA, reassuring status. Patient reassured, education and antepartum precautions provided. OB Disposition: home
== END 2021-03-21 15:40 | disposition home or self-care (01) ==
LOC: LABOR 15:00 → OB 03-24 13:01
PROVIDERS: PCP Family Medicine; Referring Provider Obstetrics & Gynecology; Visit Provider Obstetrics & Gynecology
DX: O36.8130 Decreased fetal movements, third trimester, not applicable or unspecified (principal); Z3A.33 33 weeks gestation of pregnancy
CPT/HCPCS: 59025; 81001; G0378; G0379

== ENCOUNTER → 2021-04-15 12:24 | Outpatient (CLI) | payer OTHER, MEDICAID, SELFPAY ==
[2021-04-16 10:53] LABS: Strep Grp B PCR NEG for Grp B Strep
== END ==
PROVIDERS: PCP Family Medicine; Visit Provider Obstetrics & Gynecology
DX: Z36.85 Encounter for antenatal screening for Streptococcus B (principal); Z3A.36 36 weeks gestation of pregnancy
CPT/HCPCS: 87653

== ENCOUNTER 2021-04-20 12:23 | Outpatient (CLI) | payer OTHER, MEDICAID, SELFPAY | END 2021-04-20 13:05 | disposition home or self-care (01) | LOC: LABOR 12:47 → OB 04-22 16:38 | PROVIDERS: PCP Family Medicine; Referring Provider Obstetrics & Gynecology; Visit Provider Obstetrics & Gynecology | DX: O99.113 Other diseases of the blood and blood-forming organs and certain disorders involving the immune mechanism complicating pregnancy, third trimester (principal); D68.51 Activated protein C resistance; Z3A.37 37 weeks gestation of pregnancy | CPT/HCPCS: 59025; G0378; G0379 ==

== ENCOUNTER 2021-05-03 17:40 | Observation (INO) | payer OTHER, MEDICAID, SELFPAY ==
[2021-05-03 19:37] LABS: COVID19 -Nasal RAPID Negative (Negative)
[2021-05-03] MEDS: DINOPROSTONE VAG (CERVIDIL) 10 MG VAG (20:25)
[2021-05-03 20:26] VITALS: BP 125/80
[2021-05-03 21:09] LABS: Add Manual Diff / Slide Review NO; Basophils Absolute Auto 100 /uL (0-100); Basophils Percent Auto 1.2 % (0-2); Eosinophils Absolute Auto 100 /uL (0-450); Eosinophils Percent Auto 0.8 % (2-4); Hematocrit 34.6 % (36-46); Hemoglobin 11.7 g/dL (12.0-16.0); Lymphocytes Absolute Auto 2700 /uL (1100-4500); Lymphocytes Percent Auto 23.4 % (25-40); Mean Corpuscular HGB Conc 33.8 % (30-36); Mean Corpuscular Volume 85.9 fL (80-100); Monocytes Absolute Auto 800 /uL (0-900); Monocytes Percent Auto 6.6 % (3-14); Neutrophils Absolute Auto 7900 /uL (1500-7000); Platelet Count 311 X10^3/uL (150-400); Red Blood Cell Count 4.02 X10^6/uL (4.0-5.2); Red Cell Distribution Width 13.6 % (11.6-14.8); White Blood Cell Count 11.7 X10^3/uL (4.5-11.0)
== END 2021-05-04 08:20 | disposition home or self-care (01) ==
PROVIDERS: Admitting Provider Obstetrics & Gynecology; PCP Family Medicine; Referring Provider Obstetrics & Gynecology; Visit Provider Obstetrics & Gynecology
DX: O99.113 Other diseases of the blood and blood-forming organs and certain disorders involving the immune mechanism complicating pregnancy, third trimester (principal); D68.51 Activated protein C resistance; Z3A.39 39 weeks gestation of pregnancy
CPT/HCPCS: 36415; 76815; 85025; 86850; 86900; 86901; 87635; C9803; G0378; G0379

== ENCOUNTER 2021-05-05 07:21 | Inpatient (IN) | payer OTHER, MEDICAID, SELFPAY ==
[2021-05-05 07:51] VITALS: BP 125/75
[2021-05-05] MEDS: LACTATED RINGERS 1,000 ML 100 ML IV ×3 (08:08→23:08)
[2021-05-05] MEDS: OXYTOCIN PREMIX 30 UNIT/500 ML PLAST..BAG IV (08:09)
[2021-05-05 08:14] LABS: Add Manual Diff / Slide Review NO; Basophils Absolute Auto 100 /uL (0-100); Basophils Percent Auto 0.5 % (0-2); Eosinophils Absolute Auto 100 /uL (0-450); Hematocrit 34.5 % (36-46); Hemoglobin 11.7 g/dL (12.0-16.0); Lymphocytes Absolute Auto 2700 /uL (1100-4500); Lymphocytes Percent Auto 26.2 % (25-40); Mean Corpuscular Hemoglobin 29.2 PG (26-34); Mean Corpuscular Volume 85.9 fL (80-100); Monocytes Absolute Auto 600 /uL (0-900); Monocytes Percent Auto 5.7 % (3-14); Neutrophils Absolute Auto 6900 /uL (1500-7000); Neutrophils Percent Auto 66.6 % (50-75); Platelet Count 307 X10^3/uL (150-400); Red Blood Cell Count 4.02 X10^6/uL (4.0-5.2); Red Cell Distribution Width 13.6 % (11.6-14.8); White Blood Cell Count 10.4 X10^3/uL (4.5-11.0)
[2021-05-05 08:21] LABS: Prothrombin Time 11.4 SECONDS (10.1-12.7)
[2021-05-05 08:25] LABS: PTT Partial Thromboplastin Tim 31 SECONDS (26.4-36.2)
--- NOTE | 2021-05-05 09:29 | PM.OBHP.IH.1 ---
OB HPI Date/Time Date of admission: 05/05/21 Date Patient Seen: 05/05/21 Time Patient Seen: 07:30 History of Present Condition Chief complaint: INDUCTION BRANDEE Calculator Estimated Delivery Date Method Current WG Current Estimate 05/08/21 LMP (Certain) 39w 4d Estimated Gestational Age (weeks): 39+4 : 1 Para: 0 care: good care, initiated at week # (9), number of visits (11) and pounds weight gain (16) Dating criteria OB: LMP confirmed by 1st trimester US Ultrasounds: normal 1st trimester US and normal mid trimester US Obstetrical complications: none Medical complications OB: other (Leiden Factor V) Indications Indication for induction OB: other (On Lovenox/Heparin due to Leiden Factor V) Preadmission Labs Last OB Lab Results: Blood Type A Positive 05/05/21 08:00 05/05/21 Antibody Screen Negative 05/05/21 08:00 05/05/21 Hematocrit 34.5 % (36-46) L 05/05/21 08:00 05/05/21 Hemoglobin 11.7 g/dL (12.0-16.0) L 05/05/21 08:00 05/05/21 Hepatitis B Surface Antigen Negative s/c (NEGATIVE) 10/09/20 18:06 10/09/20 Hepatitis C Antibody Negative s/c (NEGATIVE) 10/09/20 18:06 10/09/20 Rubella Antibody 19.7 IU/mL (>15) 10/09/20 18:06 10/09/20 Varicella-Zoster IgG Antibody <135 index (Immune >165) L 10/09/20 18:06 10/09/20 Glucose 1 Hour 128 mg/dL (76-139) 02/02/21 11:25 02/02/21 Group B Streptococcus (PCR) Neg for grp b strep 04/15/21 12:24 04/15/21 -: Chlamydia screen: negative, Gonorrhea screen: negative and Urine: negative -: PAP smear: Normal Genetic Screens: Quad screen: Normal External Labs -: Urine: negative Evaluation Evaluation Baseline heart rate: 145 Variability: Moderate (11-25) monitor accelerations: Present Monitor Decelerations: Absent Contraction Frequency (minutes): 8 Uterine Contraction Intensity: Mild Status: Category l Dilation (cm): 2 Effacement (%): 80 station: -1 Position of cervix: mid Consistency: medium PFSH Medical History Carpal tunnel syndrome of right wrist Chicken pox (~2001) Closed fracture of left lower leg with routine healing (~1998) Depression (2009) GERD (gastroesophageal reflux disease) (2011) Irregular periods/menstrual cycles (2009) Obesity Open angle with borderline findings Peptic ulcer disease (2011) Pneumonia (~2015) Sleep disturbance Tobacco use (12/03/13) Surgical History Anesthesia History of removal of skin mole (2006) Family History Grandfather Age: 82 Hypertension Hyperlipidemia COPD (chronic obstructive pulmonary disease) Asthma Former smoker, stopped smoking in distant past Mother Diabetes mellitus History of above-knee amputation of both lower extremities Hypertension High cholesterol Myocardial infarct Depression TIA (transient ischemic attack) Factor V deficiency Factor VIII deficiency Father Alcoholic Depression Grandmother Pancreatic cancer Diabetes mellitus Obesity Grandmother Bipolar 1 disorder Grandfather Alcoholic Smoker Social History marital status: household members: spouse lives independently: Yes caregiver/support person: No housing: house pets and animals: Yes (3 dogs: safe) education level: high school (GED) occupational status: employed ([employer]. ) current occupational exposures/hazards: No special karma needs: No seatbelt use: always do you feel safe at home: Yes Smoking Status: Former smoker second hand exposure: No alcohol intake: former substance use type: marijuana during the past year weight has: decreased > 10 lbs well-balanced diet: about half the time caffeine: No Type(s) of exercise: none Meds Home Medications and Allergies Home Medications Medication Instructions Recorded Confirmed Type prenat.vits,jayjay,sdu-tabk-eogub 1 tab PO DAILY 05/06/20 05/05/21 History citalopram 20 mg tablet 60 mg PO DAILY #270 tab 01/14/21 05/05/21 Rx ondansetron 4 mg disintegrating 4 mg PO Q8H PRN #30 tab 04/07/21 05/05/21 Rx tablet Allergies Allergy/AdvReac Type Severity Reaction Status Date / Time amoxicillin Allergy Intermediate HIVES Verified 05/03/21 19:34 Penicillins Allergy Intermediate Hives Verified 05/05/21 09:14 fluoxetine AdvReac Severe self harm Verified 05/03/21 19:34 bupropion AdvReac Intermediate vivid Verified 05/03/21 19:34 dreams difficult to tell if they were real or not OB Exam Narrative Exam Narrative: Generally: Patient is sitting up in bed, no distress Lungs: Clear to auscultation bilaterally Cardiovascular: Regular rate and rhythm Fundal height: 40 cm Estimated weight: 7-1/2 lb Extremities: 1+ edema, 1+ DTRs Objective Labs Result Diagrams: 05/05/21 08:00 Labs: Laboratory Results - last 24 hr 05/05/21 05/05/21 05/05/21 08:00 08:00 08:00 WBC 10.4 RBC 4.02 Hgb 11.7 L Hct 34.5 L MCV 85.9 MCH 29.2 MCHC 34.0 RDW 13.6 Plt Count 307 Neut % (Auto) 66.6 Lymph % (Auto) 26.2 [place] % (Auto) 5.7 Eos % (Auto) 1.0 L Baso % (Auto) 0.5 Neut # (Auto) 6900 Lymph # (Auto) 2700 [place] # (Auto) 600 Eos # (Auto) 100 Baso # (Auto) 100 PT 11.4 INR 1.0 APTT Blood Type A Positive Antibody Screen Negative 05/05/21 08:00 WBC RBC Hgb Hct MCV MCH MCHC RDW Plt Count Neut % (Auto) Lymph % (Auto) [place] % (Auto) Eos % (Auto) Baso % (Auto) Neut # (Auto) Lymph # (Auto) [place] # (Auto) Eos # (Auto) Baso # (Auto) PT INR APTT 31 Blood Type Antibody Screen Assessment and Plan Assessment and Plan Assessment and Plan narrative: Assessment: 25-year-old 1 para 0 at 39-,4/7 weeks gestation for induction of labor due to Lovenox/heparin use due to Leiden Factor V Favorable cervix Plan: Begin Pitocin per protocol 2 Epidural as necessary Expected management to spontaneous vaginal delivery Time Spent with Patient Total time spent with greater than 50% in coordination of care (as documented) at patient's floor/unit and/or counseling patient:: less than 15 minutes
--- NOTE | 2021-05-05 09:35 | PM.OBPNLAB ---
Date/Time Date Patient Seen: 05/05/21 Time Patient Seen: 09:35 Pain Control Pain control: tolerating well Pelvic Exam Dilation (cm): 2 Effacement (%): 80 station: -1 Amniotic membrane status: Intact Contractions Contractions on admission: irregular Monitor mode: External Pitocin rate (mU/min): 6 Contraction frequency (min): 3 Contraction duration (min): 1 Contraction pattern: Regular Contraction intensity: Mild Status status: Category l Heart Rate Baseline: 145 Monitor Accelerations: Present Monitor Decelerations: Absent Monitor Variability: Moderate Assessment and Plan Assessment: induction ongoing Comments: AROM with copious clear amniotic fluid Epidural prn Expectant management to
--- NOTE | 2021-05-05 10:35 | P.PCN_ITS ---
Regional Block Pre-procedure Procedure: Continuous Lumbar Epidural for L&D Attending OB provider: Gardenia Rordiguez PMH/ROS narrative: term labor/induction. Factor V Leiden, obesity (BMI 39), depression. ASA Class: II Labs: Hct 34.5 % (36-46) L 05/05/21 08:00 Plt Count 307 X10^3/uL (150-400) 05/05/21 08:00 Medications: Current Medications Generic Name Dose Route Start Last Admin Trade Name Freq PRN Reason Stop Dose Admin Calcium Carbonate 1,000 mg 05/05/21 07:50 Calcium Carbonate 500 Mg Tab PO Q2HR PRN Dyspepsia Carboprost Tromethamine 250 mcg 05/05/21 07:50 Carboprost 250 Mcg/Ml Ampul IM Q90M PRN Bleeding Fentanyl 50 mcg 05/05/21 07:50 Fentanyl 100 Mcg/2 Ml Inj IV Q1H PRN Pain, Moderate (4-6) Lactated Ringer's 1,000 mls @ 100 mls/hr 05/05/21 08:00 05/05/21 08:08 Lactated Ringers IV 100 mls/hr CONT SELENA Administration Oxytocin/Lactated Ringer's 30 unit in 500 mls @ 200 mls/hr 05/05/21 07:50 Oxytocin Premix IV CONT PRN Bleeding Protocol Tranexamic Acid 1,000 mg/ 100 mls @ 200 mls/hr 05/05/21 07:50 Sodium Chloride IV NOW PRN Bleeding Oxytocin/Lactated Ringer's 30 unit in 500 mls @ 3 mls/hr 05/05/21 08:00 05/05/21 08:09 Oxytocin Premix IV 3 milliunit/min TITRATE SELENA 3 mls/hr Administration Protocol 3 MILLIUNIT/MIN Methylergonovine Maleate 0.2 mg 05/05/21 07:50 Methylergonovine 0.2 Mg Tablet PO Q6HR PRN Heavy Bleeding Methylergonovine Maleate 0.2 mg 05/05/21 07:50 Methylergonovine 0.2 Mg/Ml Vial IM NOW PRN Bleeding Metoclopramide HCl 10 mg 05/05/21 07:50 Metoclopramide 10 Mg/2 Ml Inj IV NOW PRN Nausea And Vomiting Misoprostol 800 mcg 05/05/21 07:50 Misoprostol [address] NOW PRN Bleeding Misoprostol 1,000 mcg 05/05/21 07:50 Misoprostol [address] NOW PRN Bleeding Misoprostol 400 mcg 05/05/21 07:50 Misoprostol 200 Mcg Tablet SL NOW PRN Bleeding Naloxone HCl 0.2 mg 05/05/21 07:50 Naloxone 0.4 Mg/Ml Vial IV Q2MIN PRN Opiate Reversal Ondansetron HCl 4 mg 05/05/21 07:50 Ondansetron 4 Mg/2 Ml Inj IV Q4HR PRN Nausea And Vomiting Oxytocin 10 unit 05/05/21 07:50 Oxytocin 10 Unit/Ml Vial IM NOW PRN Bleeding Allergies: Allergies Allergy/AdvReac Type Severity Reaction Status Date / Time amoxicillin Allergy Intermediate HIVES Verified 05/03/21 19:34 Penicillins Allergy Intermediate Hives Verified 05/05/21 09:14 fluoxetine AdvReac Severe self harm Verified 05/03/21 19:34 bupropion AdvReac Intermediate vivid Verified 05/03/21 19:34 dreams difficult to tell if they were real or not Procedure Insertion date: 05/05/21 Insertion time: 23:01 Prep/Local: betadine x3 and 1% lidocaine Interspace: L3-4 Patient position: sitting Needle: 18 gauge Hustead (CSE: 27g Pencan through Hustead, clear CSF, 1mL o.25% bupiv) Loss of resistance with: saline JOSHUA at (cm): 6 Catheter placed at SKIN (cm): 11 Catheter in SPACE (cm): 5 Insertion: No CSF, No Blood, No Paresthesia with insertion, No Paresthesia with injection and No Test dose reaction Initial Medications TEST DOSE time: 23:10 TEST DOSE: 1.5% lidocaine with epinephrine 1:200k (mL): 3 BOLUS DOSE time: 23:13 BOLUS DOSE (mL): 3 BOLUS DOSE med: other (infusate) Infusion Initial rate (mL/hr): 8 Subsequent interventions: First attempt L2-3, JOSHUA saline at 6cm, intrathecal dose, catheter to 12cm, +heme. Catheter withdrawn to 11cm, then 10cm, with blood aspirated at each. Catheter withdrawn. Second attempt at L3-4 succes sful. Soft JOSHUA at 6cm. Confirmed placement with 27g Pencan through Hustead, clear CSF. Catheter to 11cm, Negative aspiration, negative test dose. Secured. 09:40 5mL 2-chloroprocaine, pushing. 09:55 Post-procedure Anesthesia time START: 22:55 Anesthesia time END: 09:55 Post-procedure Anesthesia Assessment: Yes CV function: HR/BP stable, Yes Resp function: RR/sat/airway adequate, Yes Mental status appropriate and No Anesthesia complications
--- NOTE | 2021-05-05 17:41 | PM.OBPNLAB ---
Date/Time Date Patient Seen: 05/05/21 Time Patient Seen: 05:00 Pain Control Pain control: tolerating well Pelvic Exam Dilation (cm): 4 Effacement (%): 90 station: -1 Amniotic membrane status: Ruptured Contractions Contractions on admission: irregular Monitor mode: External Pitocin rate (mU/min): 10 Contraction frequency (min): 3 Contraction duration (min): 1 Contraction pattern: Regular Contraction intensity: Moderate Status status: Category l Heart Rate Baseline: 135 Monitor Accelerations: Present Monitor Decelerations: Absent Monitor Variability: Moderate Assessment and Plan Assessment: active labor and induction ongoing Plan: other (IUPC placed)
[2021-05-05] MEDS: fentaNYL 100 MCG/2 ML INJ 50 MCG IV (21:16)
[2021-05-05] MEDS: CEFAZOLIN 2 GM/20 ML SYRINGE IV (22:30)
--- NOTE | 2021-05-05 22:36 | PM.OBPNLAB ---
Date/Time Date Patient Seen: 05/05/21 Time Patient Seen: 22:36 Pain Control Pain control: other (very uncomfortable) Pelvic Exam Dilation (cm): 5 Effacement (%): 90 station: -1 Amniotic membrane status: Ruptured Contractions Contractions on admission: irregular Monitor mode: External Pitocin rate (mU/min): 11 Contraction frequency (min): 3 Contraction duration (min): 1 Contraction pattern: Regular Contraction intensity: Moderate Intrauterine tone measurement: 200 Status status: Category l Heart Rate Baseline: 135 Monitor Accelerations: Present Monitor Decelerations: Absent Monitor Variability: Moderate Assessment and Plan Assessment: active labor and induction ongoing Plan: other (Epidural, Cefazolin, Once comfortable, d/c Pitocin for an hour and then restart)
[2021-05-05] MEDS: FENT 2MCG/ML BUPIV 0.125% EPI 200 MCG/100 ML PLAST..BAG 8 MCG EPIDURAL (23:13)
[2021-05-06] MEDS: FENT 2MCG/ML BUPIV 0.125% EPI 200 MCG/100 ML PLAST..BAG 8 MCG EPIDURAL ×2 (04:49→06:16)
[2021-05-06] MEDS: LACTATED RINGERS 1,000 ML 100 ML IV (06:16)
[2021-05-06] MEDS: CEFAZOLIN 10 ML IV (07:46)
[2021-05-06] MEDS: LIDOCAINE 1% 20 ML (10:10)
[2021-05-06] MEDS: IBUPROFEN 600 MG TABLET PO ×2 (13:03→22:47)
--- NOTE | 2021-05-06 18:44 | PM.OBPNLAB ---
Date/Time Date Patient Seen: 05/06/21 Time Patient Seen: 08:15 Pain Control Pain control: tolerating well and epidural Pelvic Exam Dilation (cm): 10 Effacement (%): 100 station: 0 Amniotic membrane status: Ruptured Contractions Contractions on admission: irregular Monitor mode: External Pitocin rate (mU/min): 9 Contraction frequency (min): 4 Contraction duration (min): 1 Contraction pattern: Regular Contraction intensity: Moderate Intrauterine tone measurement: 200 Status status: Category l Heart Rate Baseline: 135 Monitor Accelerations: Present Monitor Decelerations: Absent Monitor Variability: Moderate Assessment and Plan Assessment: active labor Plan: continuous present management (Continue pushing)
--- NOTE | 2021-05-06 18:46 | P.PCNOB_ITS ---
Labor & Delivery Delivery date: 05/06/21 Intrapartal Events: Prolonged Labor > 20 hours Cervical ripening method: per Cervidil protocol Induction method: per pitocin protocol Delivery augmentation: rupture of membranes Delivery monitor: external FHT and external uterine Route of delivery: vacuum extraction Indication for instrumentation: nonreassuring FHR tracing (Deep variable decels) Episiotomy description: None L&D Laceration Description: Vaginal - 1st Degree and Labial (bilateral 1st degree tears) Delivery repair: vicryl and chromic Estimated blood loss (mL): 350 Anesthesia Type: Epidural and Local (for the repair) Complications: None [place] Baby 1: gender: Female Presentation: vertex Position: Left Occiput Anterior Placenta delivery description: Spontaneous Cord Vessel Description: 3 Vessels, Nuchal Cord, Tight and Clamped/Cut score (1 min): 7 score (5 min): 9 weight: 6 lb 2 oz Narrative: Patient complete and pushed for 2 hours. A vaccuum was placed due to deep variable decelerations with contractions. With 1 pull the vertex delivered over an intact perineum at 0955. A tight nuchal cord was cut on the perineum. The remainder of the body delivered without difficulty and was placed on mom's abdomen. Cord bloods were obtained. Pitocin was given in the IV fluids. The placenta delivered intact with a three-vessel cord at 10:05 a.m.. The fundus was massaged to firm. There were bilateral first-degree labial lacerations which were repaired with 3-0 chromic in the usual fashion. There was a first- degree vaginal tear which was closed with 2 0 Vicryl in a running interlocking fashion. Hemostasis was achieved. Estimated blood loss 350 cc. Apgars 7 at 1 minute and 9 at 5 minutes. . Epidural analgesia. Mom and stable to recovery. Plan for aftercare: Routine care
[2021-05-06] MEDS: LANOLIN OINT 7 GM 1 APPLIC TOP (22:47)
[2021-05-07 06:54] LABS: Hematocrit 29.8 % (36-46)
[2021-05-07] MEDS: PRENATAL VIT,CALC/IRON/FOLIC 1 TABLET 1 TAB PO (09:08)
[2021-05-07] MEDS: DOCUSATE 100 MG CAPSULE PO (09:08)
--- NOTE | 2021-05-12 12:45 | P.DS_ITS ---
Discharge Providers Provider Date of admission: 05/05/21 07:21 Discharge Date: 05/07/21 Primary care physician: Candy Michael MD Consults: 05/07/21 10:57 Consult to Claim Specialist Routine Comment: Discharge provider: Gardenia Rodriguez MD Summary Hospital Course Date Patient Seen: 05/07/21 Time Patient Seen: 13:00 Diagnoses: 39 weeks gestation Leiden Factor 5 mutation Induction of labor with Pitocin Artificial rupture of membranes Epidural analgesia Vacuum assisted vaginal delivery Obstetrical laceration repair Hospital Course: Patient is a 25-year-old 1 para 1 who presented on May 03, 2021 for Cervidil cervical ripening. On the morning of May 04, 2021 due to staffing issues the patient was sent home with a favorable cervix. She returned on May 05, 2021 for Pitocin induction of labor. Pitocin was started. Artificial rupture membranes was performed. She received an epidural for pain management. She slowly progressed to the second stage of labor and had a vacuum assisted vaginal delivery on May 06, 2021 at 9:55 a.m.. Her course was unremarkable. She was discharged home on May 07, 2021. was going well. She was ambulating without assistance. Pain was well controlled. Peripartum Data Delivery Method: Assisted Delivery (Vacuum) Laceration Description: Vaginal - 1st Degree and Labial (Bilateral first-degree) Episiotomy description: None Procedures: Cervidil cervical ripening Pitocin induction of labor Artificial rupture of membranes Epidural analgesia Vacuum assisted vaginal delivery Obstetrical laceration repair including first-degree vaginal and first-degree bilateral labial complications: none [place] 1: Gender: Female Disposition of : home Status at Discharge Cognitive/behavioral status at discharge: oriented Functional status at discharge: independent ambulation Overall status at discharge: patient is progressing back to baseline Time Spent with Patient Time attestation: Total time spent providing and/or coordinating discharge services: Time spent: Less than 30 minutes Objective Labs Result Diagrams: 05/07/21 06:04 Exam Narrative Exam Narrative: Generally: Patient is sitting up in bed, holding , no acute distress Fundus: Firm at U -1 Extremities: 1+ edema, negative Homans Discharge Plan Discharge Plan Patient Disposition: Home Provider Discharge Comment: Call with fever, chills, or bleeding vaginally more than a pad in an hour Tylenol 650 mg every 6 hours as needed Restart Lovenox May 08, 2021 Nursing Discharge Comment: You may take Ibuprofen or Tylenol as prescribed. 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 [place] Discharge orders & Medications Prescriptions: Continued citalopram 20 mg tablet 60 mg PO DAILY Qty: 270 1RF prenat.vits,jayjay,[id number] Tablet 1 tab PO DAILY 0RF Discontinued ondansetron 4 mg tablet,disintegrating 4 mg PO Q8H PRN (Reason: nausea and vomiting) Qty: 30 2RF No Action enoxaparin [Lovenox] 40 mg/0.4 mL syringe 40 mg SUBCUT DAILY Qty: 12 1RF Follow up/Referrals: Gardenia Rodriguez MD [Physician] - 6 Weeks (Your followup appointment is Tuesday06/23/[address] Rodriguez) Diet/Activity/Treatments Diet: Regular Activity: Nothing in the vagina until 6 week visit Skin/Wound/Dressing Care Report to your healthcare provider any signs of infection, such as:: chills, fever, increased pain and unusual drainage Visit Report/Discharge Packet Instructions: DI for Labor and Delivery, Vaginal Stand Alone Forms: Discharge: Care Discharge Data Primary Care Provider: Candy Michael
== END 2021-05-07 14:39 | disposition home or self-care (01) | DRG 806 ==
PROVIDERS: Admitting Provider Obstetrics & Gynecology; PCP Family Medicine; Referring Provider Obstetrics & Gynecology; Visit Provider Obstetrics & Gynecology
DX: O99.12 Other diseases of the blood and blood-forming organs and certain disorders involving the immune mechanism complicating childbirth (principal); D68.51 Activated protein C resistance; Z37.0 Single live birth; Z3A.39 39 weeks gestation of pregnancy; O70.0 First degree perineal laceration during delivery; O76 Abnormality in fetal heart rate and rhythm complicating labor and delivery; O63.0 Prolonged first stage (of labor); O69.1XX0 Labor and delivery complicated by cord around neck, with compression, not applicable or unspecified
CPT/HCPCS: 01967; 36415; 59050; 59200; 59400; 76815; 85014; 85018; 85025; 85610; 85730; 86850; 86900; 86901; 87635; C9803; G0378; G0379; J0690; J2590; J3010

== ENCOUNTER → 2022-07-05 11:28 | Outpatient (CLI) | payer OTHER, MEDICAID, SELFPAY | PROVIDERS: PCP Family Medicine; Visit Provider Family Medicine | DX: J02.9 Acute pharyngitis, unspecified (principal) | CPT/HCPCS: 87070; 87880 ==

== ENCOUNTER → 2023-07-29 09:17 | Outpatient (CLI) | payer OTHER, SELFPAY ==
[2023-07-29 11:37] LABS: Add Manual Diff / Slide Review NO; Basophils Absolute Auto 100 /uL (0-100); Eosinophils Absolute Auto 400 /uL (0-450); Eosinophils Percent Auto 5.5 % (2-4); Hematocrit 37.9 % (36-46); Lymphocytes Absolute Auto 3200 /uL (1100-4500); Lymphocytes Percent Auto 40.8 % (25-40); Mean Corpuscular HGB Conc 34.4 % (30-36); Mean Corpuscular Hemoglobin 30.6 PG (26-34); Monocytes Absolute Auto 500 /uL (0-900); Monocytes Percent Auto 6.6 % (3-14); Neutrophils Absolute Auto 3600 /uL (1500-7000); Neutrophils Percent Auto 46.1 % (50-75); Platelet Count 352 X10^3/uL (150-400); Red Blood Cell Count 4.25 X10^6/uL (4.0-5.2); Red Cell Distribution Width 13.7 % (11.6-14.8); White Blood Cell Count 7.8 X10^3/uL (4.5-11.0)
[2023-07-29 11:41] LABS: Hemoglobin A1C% w Est Avg Glu 4.9 % (4.0-6.0)
[2023-07-29 11:53] LABS: Alanine Aminotransferase 25 IU/L (<35); Albumin 4.6 g/dL (3.5-5.0); Albumin Globulin Ratio 1.8 (1.0-2.8); Alkaline Phosphatase 59 U/L (38-126); Aspartate Aminotransferase 27 IU/L (14-36); BUN Creatinine Ratio 14.3 (6-22); Bilirubin Total 0.8 mg/dL (0.2-1.3); Blood Urea Nitrogen 11 mg/dL (7-17); Calcium 9.5 mg/dL (8.4-10.2); Carbon Dioxide 26 mmol/L (22-32); Chloride 106 mmol/L (98-107); Cholesterol 173 mg/dL (140-199); Estimated Glomerular Filt Rate > 60 mL/min (>60); Globulin 2.6 g/dL (1.7-4.1); Glucose 91 mg/dL (70-100); HDL Cholesterol 49 mg/dL (40-60); HEMOLYSIS < 15 (0-50); LDL Cholesterol Calculated 109 mg/dL (<100); Potassium 4.7 mmol/L (3.4-5.1); Sodium 139 mmol/L (137-145); Total Protein 7.2 g/dL (6.3-8.2); Triglycerides 77 mg/dL (35-150)
[2023-07-29 11:57] LABS: High Sensitivity CRP - Cardiac 2.1 mg/L (1.0-3.0)
[2023-07-29 12:25] LABS: Ferritin 41 ng/mL (6-137)
== END ==
PROVIDERS: PCP Family Medicine; Referring Provider Family Medicine; Visit Provider Family Medicine
DX: Z00.01 Encounter for general adult medical examination with abnormal findings (principal); E66.01 Morbid (severe) obesity due to excess calories; D68.51 Activated protein C resistance; F31.9 Bipolar disorder, unspecified; F41.9 Anxiety disorder, unspecified; D64.9 Anemia, unspecified
CPT/HCPCS: 36415; 80053; 80061; 82728; 83036; 85025; 86140